=== PATIENT | male | born 1980 | race Caucasian/White ===

== ENCOUNTER 2023-03-05 09:46 | Emergency (ER) | payer BC ==
[~2023-03-05] VITALS: Ht 177.8 cm; Wt 91.0 kg
[2023-03-05 10:02] VITALS: BP 108/65; O2SAT 98
[2023-03-05] MEDS ORDERED: GUAI600T26 MT (10:34)
[2023-03-05 10:59] VITALS: PULSE 109; RESP 16; TEMP 99.7
== END 2023-03-05 11:00 | disposition home or self-care (01) ==
LOC: ER 09:46
DX: B34.9 Viral infection, unspecified (principal); E11.9 Type 2 diabetes mellitus without complications
CPT/HCPCS: 99282